=== PATIENT | female | born 1995 | race Caucasian/White ===

== ENCOUNTER 2018-09-22 15:19 | Outpatient (CLI) ==
[2018-08-01 13:48] VITALS: BMI 32.0
== END 2018-09-22 15:20 | disposition home or self-care (01) ==
LOC: RHC-LAB 15:19
PROVIDERS: ATTEND Nurse Practitioner Family
DX: R05 Cough (principal); J02.9 Acute pharyngitis, unspecified
CPT/HCPCS: 87502; 87651

== ENCOUNTER 2018-11-18 15:40 | Outpatient (CLI) ==
[2018-08-01 13:48] VITALS: BMI 32.0
== END 2018-11-18 15:41 | disposition home or self-care (01) ==
LOC: RHC-LAB 15:40 → FCC-LAB 15:41
PROVIDERS: ATTEND Family Medicine
DX: R05 Cough (principal)
CPT/HCPCS: 87651

== ENCOUNTER 2018-12-06 09:15 | Emergency (ER) ==
[2018-12-06 09:18] VITALS: BP 128/93; TEMP 101; BMI 30.6
[2018-12-06] MEDS ORDERED: MOTRIN PO STA (10:54)
--- NOTE | 2018-12-06 10:54 | ED.PDOC ---
General ED Provider: Dr. GANGA ABDI Chief Complaint: Fever Stated Complaint: Fever, chills and body aches.Coughing/back aching Time Seen by Physician: 09:40 Mode of Arrival: Walk-In Information Source: Patient Exam Limitations: No limitations Primary Care Provider: PEARL PEDRO Nursing and Triage Documentation Reviewed and Agree: Yes Does patient meet sepsis criteria?: No System Inflammatory Response Syndrome: Not Applicable Sepsis Protocol: For patient's 13 years and over: Temp is 96.8 and below OR 101 and greater Pulse >90 BPM Resp >20/minute Acutely Altered Mental Status Are patient's symptoms suggestive of a new infection, such as: -Pneumonia -Skin, Soft Tissue -Endocarditis -UTI -Bone, Joint Infection -Implantable Device -Acute Abdominal Infection -Wound Infection -Meningitis -Blood Stream Catheter Infection -Unknown Review of Systems - Review Of Systems Constitutional: Reports: Chills, Fever, Malaise, Loss of appetite Eyes: Reports: No symptoms Ears, Nose, Mouth, Throat: Reports: No symptoms Respiratory: Reports: Cough Cardiac: Reports: No symptoms GI: Reports: No symptoms : Reports: No symptoms Musculoskeletal: Reports: No symptoms Skin: Reports: No symptoms Neurological: Reports: No symptoms Endocrine: Reports: No symptoms Hematologic/Lymphatic: Reports: No symptoms All Other Systems: Reviewed and Negative Past Medical History - Past Medical History Previously Healthy: Yes Endocrine: Reports: None Cardiovascular: Reports: None Respiratory: Reports: None Hematological: Reports: None Gastrointestinal: Reports: None Genitourinary: Reports: None Neuro/Psych: Reports: None Musculoskeletal: Reports: None Cancer: Reports: None Last Menstrual Period: 11/08/18 - Surgical History General Surgical History: Reports: None - Family History Family History: Reports: None - Social History Smoking Status: Never smoker Hx Substance Use: No Alcohol Screening: None - Immunizations Tetanus Shot up to Date: No Physical Exam - Physical Exam Appearance: Ill-appearing Ill-appearing: Mild Pain Distress: Mild Eyes: MACARENA, EOMI, Conjunctiva clear ENT: Ears normal, Erythema Neck: Supple Respiratory: Airway patent, Breath sounds clear, Breath sounds equal, Respirations nonlabored Cardiovascular: RRR GI/: Soft, Nontender, No masses, Bowel sounds normal, No Organomegaly Musculoskeletal: Normal strength (Tenderness mid thoracic to lumbar region on RT ) Skin: Warm, Dry, Normal color Neurological: Sensation intact, Motor intact, Reflexes intact, Cranial nerves intact, Alert, Oriented Psychiatric: Affect appropriate, Mood appropriate Critical Care Note - Critical Care Note Total Time (mins): 60 Course - Course Hematology/Chemistry: 12/06/18 11:00 12/06/18 11:00 Orders, Labs, Meds: Lab Review 12/06/18 12/06/18 12/06/18 09:25 11:00 11:00 WBC 5.65 RBC 4.99 Hgb 13.1 Hct 40.8 MCV 81.8 MCH 26.3 L MCHC 32.1 RDW Coeff of Renea 13.7 Plt Count 227 Immature Gran % (Auto) 0.2 Neut % (Auto) 72.7 Lymph % (Auto) 15.2 [place] % (Auto) 11.0 H Eos % (Auto) 0.4 Baso % (Auto) 0.5 Immature Gran # (Auto) 0.0 Neut # (Auto) 4.1 Lymph # (Auto) 0.9 [place] # (Auto) 0.6 Eos # (Auto) 0.0 Baso # (Auto) 0.0 Sodium 138.8 Potassium 3.80 Chloride 104.5 Carbon Dioxide 23.6 Anion Gap 14.50 BUN 7.7 Creatinine 0.74 Estimated GFR (MDRD) 98.00 BUN/Creatinine Ratio 10.40 Glucose 91.5 Calcium 9.21 Total Bilirubin 0.23 AST 23.1 ALT 17.0 Alkaline Phosphatase 89.4 Total Protein 7.79 Albumin 4.98 Globulin 2.81 Albumin/Globulin Ratio 1.77 Urine Color Urine Clarity Urine pH Ur Specific Braggs Urine Protein Urine Glucose (UA) Urine Ketones Urine Blood Urine Nitrite Urine Bilirubin Urine Urobilinogen Ur Leukocyte Esterase Urine Microscopic RBC Urine Microscopic WBC Ur Squamous Epith Cells Urine Bacteria Urine Mucus Influ A Molecular Assay Positive by naat H Influ B Molecular Assay Negative by naat 12/06/18 11:00 WBC RBC Hgb Hct MCV MCH MCHC RDW Coeff of Renea Plt Count Immature Gran % (Auto) Neut % (Auto) Lymph % (Auto) [place] % (Auto) Eos % (Auto) Baso % (Auto) Immature Gran # (Auto) Neut # (Auto) Lymph # (Auto) [place] # (Auto) Eos # (Auto) Baso # (Auto) Sodium Potassium Chloride Carbon Dioxide Anion Gap BUN Creatinine Estimated GFR (MDRD) BUN/Creatinine Ratio Glucose Calcium Total Bilirubin AST ALT Alkaline Phosphatase Total Protein Albumin Globulin Albumin/Globulin Ratio Urine Color Yellow Urine Clarity Slightly Urine pH 5.5 Ur Specific Braggs >=1.030 Urine Protein Trace Urine Glucose (UA) Negative Urine Ketones 1+ Urine Blood 1+ Urine Nitrite Negative Urine Bilirubin 1+ Urine Urobilinogen 0.2 Ur Leukocyte Esterase Negative Urine Microscopic RBC 0-2 Urine Microscopic WBC 0-2 Ur Squamous Epith Cells 20-30 Urine Bacteria 1+ Urine Mucus 1+ Influ A Molecular Assay Influ B Molecular Assay Orders Category Date Time Status CBC W/ AUTO DIFF Stat LAB 12/06/18 11:00 Completed CMP [COMPREHENSIVE METABOLIC PANEL] Stat LAB 12/06/18 11:00 Completed FLU A & B MOLECULAR [FLU A/B MOLECULAR] Stat LAB 12/06/18 09:25 Completed UA [URINALYSIS C & S IF INDICATED] Stat LAB 12/06/18 11:00 Completed URINE CULTURE Stat LAB 12/06/18 11:00 Received Ibuprofen [Motrin] MEDS 12/06/18 10:54 Discontinued 400 mg PO ONCE STA Medications Discontinued Medications Generic Name Dose Route Start Last Admin Trade Name Freq PRN Reason Stop Dose Admin Ibuprofen 400 mg 12/06/18 10:54 12/06/18 11:03 Motrin PO 12/06/18 10:55 400 mg ONCE STA Administration Vital Signs: Temp Pulse Resp BP Pulse Ox 12/06/18 09:16 101.0 F H 105 H 18 128/93 H 98 Departure - Departure Time of Disposition: 13:15 Disposition: PLACED OBSERVATION Discharge Problem: URI (upper respiratory infection), Influenza A (H1N1) Instructions: Upper Respiratory Infection (ED), Influenza (ED) Condition: Good Pt referred to PMD for follow-up: Yes (1 wk) IPMP verified?: No Additional Instructions: Maintain adequate oral fluids intake Advance diet per tolerance Tylenol for pain or temp above 101 degrees Rest Prescriptions: Oseltamivir Phosphate [Tamiflu] 75 mg PO Q12HR #10 capsule Allergies/Adverse Reactions: Allergies No Known Allergies Allergy (Unverified 12/06/18 09:18) Home Medications: Ambulatory Orders Diphenhydramine HCl [Benadryl] 25 mg PO PRN PRN 09/22/18 Ondansetron [Zofran Odt] 4 mg PO Q8H #7 tab.rapdis 03/30/19 Oseltamivir Phosphate [Tamiflu] 75 mg PO Q12HR #10 capsule 12/06/18 Disposition Discussed With: Patient
== END 2018-12-06 13:00 | disposition home or self-care (01) ==
LOC: ED 09:15
DX: J11.1 Influenza due to unidentified influenza virus with other respiratory manifestations (principal); R10.9 Unspecified abdominal pain
CPT/HCPCS: 36415; 80053; 81001; 85025; 87086; 87502; 99283